=== PATIENT | female | born 1940 | race Caucasian/White ===

== ENCOUNTER 2017-01-18 14:16 | Emergency (ER) | payer MEDICARE, OTHER ==
[2017-01-18 15:26] LABS: Hematocrit 34 % (35-47); Hemoglobin 11.5 g/dl (12.0-16.0); Mean Corpuscular HGB Conc 34 g/dl (31-36); Mean Corpuscular Hemoglobin 31 pg (27-31); Mean Corpuscular Volume 92 fL (80-97); Mean Platelet Volume 9 um3 (7.4-10.4); Red Blood Count 3.66 10^6/ul (4.0-5.4); Red Cell Distribution Width 12 % (10.5-15); White Blood Count 8.2 10^3/ul (3.5-10.8)
[2017-01-18 15:35] VITALS: BP 71/53
[2017-01-18 15:43] LABS: Troponin I 0.01 ng/mL (<0.04)
[2017-01-18 15:53] LABS: Albumin 4.1 g/dL (3.2-5.2); BUN/Creatinine Ratio 20.6 (8-20); C Reactive Protein 2.35 mg/L (< 5.00); Calcium 9.5 mg/dL (8.6-10.3); EGFR African American 38.8 (>60); EGFR Non-African American 30.2 (>60); Globulin 2.9 g/dL (2-4); Potassium 3.6 mmol/L (3.5-5.0); Total Bilirubin 0.5 mg/dL (0.2-1.0)
--- NOTE | 2017-01-18 16:00 | RAD ---
INDICATION: Abdominal pain. Renal failure COMPARISON: None TECHNIQUE: Noncontrast axial source images were obtained from the hemidiaphragms to the symphysis pubis. This examination was ordered using a renal stone protocol which is performed without oral or intravenous contrast and therefore has inherent limitations when used to evaluate other intra-abdominal or intrapelvic pathology. Consider conventional contrast enhanced imaging if clinically indicated Lung bases: The lung bases are clear. Liver: The liver is normal in size. Noncontrast imaging shows no evidence of a hepatic mass or ductal dilatation. Gallbladder: There are no calcified gallstones. There is no evidence of wall thickening or pericholecystic fluid. The gallbladder is distended. Spleen: The spleen is normal in size. The noncontrast CT appearance is normal. Pancreas: Noncontrast imaging shows no pancreatic mass or ductal dilitation. Adrenal glands: No masses are identified. Kidneys/Bladder: There is no evidence of nephrolithiasis or CT evidence of hydronephrosis. Noncontrast imaging shows no evidence of a renal mass. The bladder is unremarkable.. Adenopathy: There is no evidence of intraperitoneal or retroperitoneal adenopathy. Evaluation is limited without oral contrast. Fluid collections: There are no free or localized fluid collections. Vessels: There are atherosclerotic changes of the aorta and iliac vessels. There is no focal aneurysm. The IVC appears normal Pelvic organs: Not well evaluated due to beam hardening artifact from right hip arthroplasty GI tract: Evaluation of the bowel is limited without oral contrast. The stomach, small bowel, and lower GI tract appear grossly normal. There are no obstructive findings. Soft tissues: No soft tissue abnormalities of the extraperitoneal abdomen or pelvis are identified. Osseous structures: There are no acute osseous findings. There is advanced spondylitic change lumbar spine. There is an S-type scoliotic deformity. There is right hip arthroplasty. IMPRESSION: WITHIN THE LIMITS OF NONCONTRAST IMAGING THERE ARE NO ACUTE CT FINDINGS. THERE IS NO MASS OR INFLAMMATORY CHANGE. THE GALLBLADDER DOES APPEAR MILDLY DISTENDED.
[2017-01-18 16:15] LABS: Urine Bilirubin Negative (Negative); Urine Glucose Negative (Negative); Urine Nitrite Negative (Negative)
--- NOTE | 2017-01-31 07:13 | ED ---
Yuval Giron Michael, scribed for Benjamin Mcginnis MD on 01/18/17 at 1443 . Abdominal Pain/Female - HPI Summary HPI Summary: 76 y/o female was BIBA to the ED presenting with abd pain that started today during her dialysis appointment, and after removing her pants in the ED her abd pain was alleviated per nurse. HPI is limited due to dementia-level 5 caveat - History of Current Complaint Chief Complaint: EDAbdPain Stated Complaint: ABDOMINAL PAIN Time Seen by Provider: 01/18/17 14:42 Hx Obtained From: Medical Records Hx From Patient Unobtainable Due To: Dementia Onset/Duration: Sudden Onset, Resolved Timing: Constant Severity Initially: Mild Severity Currently: None Associated Signs and Symptoms: Positive: Negative Allergies/Adverse Reactions: Allergies Allergy/AdvReac Type Severity Reaction Status Date / Time No Known Allergies Allergy Verified 11/23/14 18:23 PMH/Surg Hx/FS Hx/Imm Hx Endocrine/Hematology History: Reports: Hx Thyroid Disease Cardiovascular History: Reports: Hx Hypertension Denies: Hx Pacemaker/ICD Respiratory History: Reports: Hx Asthma, Hx Seasonal Allergies History: Reports: Hx Chronic Renal Failure, Hx Dialysis Sensory History: Reports: Hx Contacts or Glasses - "light bothers her eyes", Hx Vision Problem, Other Sensory Impairments Denies: Hx Hearing Aid Opthamlomology History: Reports: Hx Contacts or Glasses - "light bothers her eyes", Hx Vision Problem, Other Sensory Impairments Neurological History: Reports: Hx Dementia Psychiatric History: Denies: Hx Panic Disorder - Surgical History Surgery Procedure, Year, and Place: right hip fx, arthroscopic surgery to left shoulder and left knee. fistula - Immunization History Date of Tetanus Vaccine: unk Date of Influenza Vaccine: unk Infectious Disease History: Reports: Hx Hepatitis Denies: Hx Clostridium Difficile, Hx Human Immunodeficiency Virus (HIV), Hx of Known/Suspected MRSA, Hx Shingles, Hx Tuberculosis, Hx Known/Suspected VRE, Hx Known/Suspected VRSA, History Other Infectious Disease, Traveled Outside the [place] in Last 30 Days - Family History Known Family History: Positive: Unknown - unobtainable due to dementia - Social History Occupation: Retired Lives: Alone Alcohol Use: None Substance Use Type: Reports: None Smoking Status (MU): Never Smoked Tobacco Review of Systems - ROS Summary Review of Systems Summary: Limited due to level 5 caveat-dementia Negative: Fever Positive: Abdominal Pain All Other Systems Reviewed And Are Negative: No Physical Exam Vital Signs On Initial Exam: Initial Vitals Temp Pulse Resp BP Pulse Ox 98.2 F 68 14 100/33 99 01/18/17 14:30 01/18/17 14:30 01/18/17 14:30 01/18/17 14:30 01/18/17 14:30 Diagnostics - Vital Signs Vital Signs Temp Pulse Resp BP Pulse Ox 01/18/17 14:30 98.2 F 68 14 100/33 99 - Laboratory Lab Results: Lab Results 01/18/17 01/18/17 01/18/17 Range/Units 15:14 15:14 15:14 WBC 8.2 (3.5-10.8) 10^3/ul RBC 3.66 L (4.0-5.4) 10^6/ul Hgb 11.5 L (12.0-16.0) g/dl Hct 34 L (35-47) % MCV 92 (80-97) fL MCH 31 (27-31) pg MCHC 34 (31-36) g/dl RDW 12 (10.5-15) % Plt Count 210 (150-450) 10^3/ul MPV 9 (7.4-10.4) um3 Neut % (Auto) 65.0 (38-83) % Lymph % (Auto) 26.4 (25-47) % Bibb % (Auto) 5.1 (1-9) % Eos % (Auto) 2.8 (0-6) % Baso % (Auto) 0.7 (0-2) % Absolute Neuts (auto) 5.3 (1.5-7.7) 10^3/ul Absolute Lymphs (auto) 2.2 (1.0-4.8) 10^3/ul Absolute Monos (auto) 0.4 (0-0.8) 10^3/ul Absolute Eos (auto) 0.2 (0-0.6) 10^3/ul Absolute Basos (auto) 0.1 (0-0.2) 10^3/ul Absolute Nucleated RBC 0 10^3/ul Nucleated RBC % 0 INR (Anticoag Therapy) (0.89-1.11) Sodium 136 (133-145) mmol/L Potassium 3.6 (3.5-5.0) mmol/L Chloride 98 L (101-111) mmol/L Carbon Dioxide 30 (22-32) mmol/L Anion Gap 8 (2-11) mmol/L BUN 34 H (6-24) mg/dL Creatinine 1.65 H (0.51-0.95) mg/dL Est GFR ( Amer) 38.8 (>60) Est GFR (Non-Af Amer) 30.2 (>60) BUN/Creatinine Ratio 20.6 H (8-20) Glucose 125 H (70-100) mg/dL Lactic Acid 0.7 (0.5-2.0) mmol/L Calcium 9.5 (8.6-10.3) mg/dL Total Bilirubin 0.50 (0.2-1.0) mg/dL AST 16 (13-39) U/L ALT 14 (7-52) U/L Alkaline Phosphatase 67 (34-104) U/L Troponin I 0.01 (<0.04) ng/mL C-Reactive Protein 2.35 (< 5.00) mg/L Total Protein 7.0 (6.4-8.9) g/dL Albumin 4.1 (3.2-5.2) g/dL Globulin 2.9 (2-4) g/dL Albumin/Globulin Ratio 1.4 (1-3) Lipase 47 (11.0-82.0) U/L Urine Color Urine Appearance Urine pH (5-9) Ur Specific [place] (1.010-1.030) Urine Protein (Negative) Urine Ketones (Negative) Urine Blood (Negative) Urine Nitrate (Negative) Urine Bilirubin (Negative) Urine Urobilinogen (Negative) Ur Leukocyte Esterase (Negative) Urine Glucose (Negative) Urine Ascorbic Acid (Negative) 01/18/17 01/18/17 Range/Units 15:14 16:03 WBC (3.5-10.8) 10^3/ul RBC (4.0-5.4) 10^6/ul Hgb (12.0-16.0) g/dl Hct (35-47) % MCV (80-97) fL MCH (27-31) pg MCHC (31-36) g/dl RDW (10.5-15) % Plt Count (150-450) 10^3/ul MPV (7.4-10.4) um3 Neut % (Auto) (38-83) % Lymph % (Auto) (25-47) % Bibb % (Auto) (1-9) % Eos % (Auto) (0-6) % Baso % (Auto) (0-2) % Absolute Neuts (auto) (1.5-7.7) 10^3/ul Absolute Lymphs (auto) (1.0-4.8) 10^3/ul Absolute Monos (auto) (0-0.8) 10^3/ul Absolute Eos (auto) (0-0.6) 10^3/ul Absolute Basos (auto) (0-0.2) 10^3/ul Absolute Nucleated RBC 10^3/ul Nucleated RBC % INR (Anticoag Therapy) 0.94 (0.89-1.11) Sodium (133-145) mmol/L Potassium (3.5-5.0) mmol/L Chloride (101-111) mmol/L Carbon Dioxide (22-32) mmol/L Anion Gap (2-11) mmol/L BUN (6-24) mg/dL Creatinine (0.51-0.95) mg/dL Est GFR ( Amer) (>60) Est GFR (Non-Af Amer) (>60) BUN/Creatinine Ratio (8-20) Glucose (70-100) mg/dL Lactic Acid (0.5-2.0) mmol/L Calcium (8.6-10.3) mg/dL Total Bilirubin (0.2-1.0) mg/dL AST (13-39) U/L ALT (7-52) U/L Alkaline Phosphatase (34-104) U/L Troponin I (<0.04) ng/mL C-Reactive Protein (< 5.00) mg/L Total Protein (6.4-8.9) g/dL Albumin (3.2-5.2) g/dL Globulin (2-4) g/dL Albumin/Globulin Ratio (1-3) Lipase (11.0-82.0) U/L Urine Color Yellow Urine Appearance Clear Urine pH 5.0 (5-9) Ur Specific [place] 1.017 (1.010-1.030) Urine Protein Negative (Negative) Urine Ketones Negative (Negative) Urine Blood Negative (Negative) Urine Nitrate Negative (Negative) Urine Bilirubin Negative (Negative) Urine Urobilinogen Negative (Negative) Ur Leukocyte Esterase Negative (Negative) Urine Glucose Negative (Negative) Urine Ascorbic Acid * H (Negative) Result Diagrams: 01/18/17 15:14 01/18/17 15:14 Lab Statement: Any lab studies that have been ordered have been reviewed, and results considered in the medical decision making process. - CT ABD/PEL CT CT Interpretation: Positive (See Comments) - WITHIN THE LIMITS OF NONCONTRAST IMAGING THERE ARE NO ACUTE CT FINDINGS. THERE IS NO MASS OR INFLAMMATORY CHANGE. THE GALLBLADDER DOES APPEAR MILDLY DISTENDED. CT Interpretation Completed By: Radiologist - EKG EK EKG Rhythm: Sinus Rhythm - 64 bpm EKG Interpretation: no STEMI EKG Comparison: No Significant Change Abdominal Pain Fem Course/Dx - Course Course Of Treatment: 76 yr old female with no pain, negative CT abd pelvis. DC home. - Diagnoses Provider Diagnoses: Abdominal pain Discharge - Discharge Plan Condition: Good Disposition: HOME Patient Education Materials: Acute Abdominal Pain (ED) Referrals: Beatriz Marks MD [Primary Care Provider] - The documentation as recorded by the Yuval contreras Michael accurately reflects the service I personally performed and the decisions made by Ras menendez Walter, MD.
== END 2017-01-18 16:51 | disposition home or self-care (01) ==
LOC: ED 14:16
DX: R10.9 Unspecified abdominal pain (principal)
CPT/HCPCS: 36415; 74176; 80053; 81003; 83605; 83690; 84484; 85025; 85610; 86140; 93005; 99282

== ENCOUNTER 2017-04-17 22:58 | Emergency (ER) | payer MEDICARE, OTHER ==
[2017-04-17 23:03] VITALS: BP 125/55
--- NOTE | 2017-04-18 01:02 | ED ---
Adult Trauma - HPI Summary HPI Summary: 76F presents with right shoulder pain. She has laceration to above right eyebrow. Her right shoulder is her only compliant. She states she fell. [place] was [place] on her face and was an unwitnessed fall. unknown LOC. no blood thinners according to records from retirement. She has PMH of dementia. Level 5 cavet - History of Current Complaint Chief Complaint: EDExtremityUpper Stated Complaint: FALL Time Seen by Provider: 04/17/17 23:10 Pain Intensity: 7 - Allergy/Home Medications Allergies/Adverse Reactions: Allergies Allergy/AdvReac Type Severity Reaction Status Date / Time No Known Allergies Allergy Verified 11/23/14 18:23 PMH/Surg Hx/FS Hx/Imm Hx Endocrine/Hematology History: Reports: Hx Thyroid Disease Cardiovascular History: Reports: Hx Hypertension Denies: Hx Pacemaker/ICD Respiratory History: Reports: Hx Asthma, Hx Seasonal Allergies History: Reports: Hx Chronic Renal Failure, Hx Dialysis Sensory History: Reports: Hx Contacts or Glasses - "light bothers her eyes", Hx Vision Problem, Other Sensory Impairments Denies: Hx Hearing Aid Opthamlomology History: Reports: Hx Contacts or Glasses - "light bothers her eyes", Hx Vision Problem, Other Sensory Impairments Neurological History: Reports: Hx Dementia Psychiatric History: Denies: Hx Panic Disorder - Surgical History Surgery Procedure, Year, and Place: right hip fx, arthroscopic surgery to left shoulder and left knee. fistula - Immunization History Date of Tetanus Vaccine: unk Date of Influenza Vaccine: unk Infectious Disease History: Unable to Obtain/Confirm Infectious Disease History: Reports: Hx Hepatitis Denies: Hx Clostridium Difficile, Hx Human Immunodeficiency Virus (HIV), Hx of Known/Suspected MRSA, Hx Shingles, Hx Tuberculosis, Hx Known/Suspected VRE, Hx Known/Suspected VRSA, History Other Infectious Disease, Traveled Outside the [place] in Last 30 Days - Family History Known Family History: Positive: Unknown - Social History Alcohol Use: None Substance Use Type: Reports: None Smoking Status (MU): Never Smoked Tobacco Review of Systems Negative: Fever Negative: Chest Pain Negative: Shortness Of Breath Negative: Abdominal Pain Positive: Myalgia - right shoulder All Other Systems Reviewed And Are Negative: Yes Physical Exam Triage Information Reviewed: Yes Vital Signs On Initial Exam: Initial Vitals Temp Pulse Resp BP Pulse Ox 97 F 73 18 125/55 100 04/17/17 23:00 04/17/17 23:00 04/17/17 23:00 04/17/17 23:00 04/17/17 23:00 Vital Signs Reviewed: Yes Completion Of Physical Exam Limited Due To: Dementia Appearance: Positive: Well-Appearing Skin: Positive: Warm, Dry, Other - 1cm superificial laceration above right eyebrow Head/Face: Positive: Normal Head/Face Inspection, Other - no step raccoon eyes, coles sign, racoon eyes Eyes: Positive: Normal, EOMI, MERRY, Conjunctiva Clear ENT: Positive: Normal ENT inspection, Pharynx normal, TMs normal Respiratory/Lung Sounds: Positive: Clear to Auscultation, Breath Sounds Present , Other - nontender chest Cardiovascular: Positive: Normal, RRR Abdomen Description: Positive: Nontender, Soft Bowel Sounds: Positive: Present Musculoskeletal: Positive: Strength/ROM Intact - left arm, right wrist and hand , Other - nontender hip and legs, tenderness to right shoulder, good pulses, capillary refill<2 secs Neurological: Positive: CN Intact II-III - [place] Coma Scale Best Eye Response: 4 - Spontaneous Best Motor Response: 6 - Obeys Commands Best Verbal Response: 5 - Oriented Procedures - Laceration/Wound Repair 1 Location: face Description: Linear Length, Depth and Shape: 1cm superficial Irrigated w/ Saline (ccs): 100 Closure: Skin Adhesive Diagnostics - Vital Signs Vital Signs Temp Pulse Resp BP Pulse Ox 04/17/17 23:00 97 F 73 18 125/55 100 - Laboratory Lab Statement: Any lab studies that have been ordered have been reviewed, and results considered in the medical decision making process. - Radiology shoulder Xray Interpretation: Positive (See Comments) - humeral neck fracture Radiology Interpretation Completed By: ED Physician - CT head CT Interpretation: No Acute Changes - involutional changes, no hemorrhage, mass , osseous structures intact CT Interpretation Completed By: Radiologist maxillary facial CT Interpretation: Positive (See Comments) - negtaive for orbite or facial fracture. fracture of right humeral head/neck junction CT Interpretation Completed By: Radiologist neck CT Interpretation: No Acute Changes - negtaie for cervical fracture CT Interpretation Completed By: Radiologist Adult Trauma Course/Dx - Course Course Of Treatment: 76F presents with right shoulder pain. She has laceration to above right eyebrow. Her right shoulder is her only compliant. She states she fell. She was [place] on [place] face and was an unwitnessed fall. unknown LOC. no blood thinners according to records from retirement. She has PMH of dementia. Level 5 cavet. on exam tender to right shoulder, neurovascular intact. CN2-[address] brain normal. xray shows proximal humeral fracture. placed in sling and told to follow up with ortho. - Diagnoses Differential Diagnosis/HQI/PQRI: Positive: Contusion(s), Fracture, Sprain Provider Diagnoses: Proximal humeral fracture Discharge - Discharge Plan Condition: Good Disposition: HOME Patient Education Materials: Proximal Humerus Fracture (ED) Referrals: Beatriz Marks MD [Primary Care Provider] - Zelalem Harrison MD [Medical Doctor] - Additional Instructions: Take tyenlol for pain every 6 hours as needed Keep sling on area Follow up with ortho within 5 days Return to ED if develop any new or worsening symptoms
--- NOTE | 2017-04-18 07:35 | RAD ---
INDICATION: Right shoulder injury COMPARISON: None TECHNIQUE: Routine frontal and Y views were obtained. FINDINGS: There is a comminuted and displaced fracture of the surgical neck of the humerus. The distal fracture fragment is displaced one half bone width medially. 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 No rib fracture or pneumothorax is seen. IMPRESSION: FRACTURE SURGICAL NECK HUMERUS
--- NOTE | 2017-04-18 07:38 | RAD ---
INDICATION: Fall. Intracranial injury. COMPARISON: CT brain December 27, 2014 TECHNIQUE: Noncontrast axial source images were acquired from the skull base to the vertex. FINDINGS: Ventricles/sulci: There is advanced cortical atrophy with compensatory dilatation of the CSF spaces. Brain parenchyma: There is periventricular and subcortical white matter change compatible with chronic ischemia. Intracranial hemorrhage:None. Extra-axial spaces: There are no abnormal extra axial fluid collections or evidence of extra-axial mass. Calvarium: There is no calvarial fracture or other calvarial abnormality. Scalp: There is no evidence of scalp or extracalvarial soft tissue abnormality. Paranasal sinuses/mastoid: There is complete opacification of the right maxillary antrum which appears hypoplastic. The appearance unchanged. The remaining paranasal sinuses and mastoid air cells are clear. Other: None. IMPRESSION: CORTICAL ATROPHY WITH CHRONIC MICROVASCULAR ISCHEMIC CHANGES. NO ACUTE FINDINGS.
--- NOTE | 2017-04-18 08:02 | RAD ---
INDICATION: Fall. Facial injury. COMPARISON: CT brain April 18, 2017; CT brain December 27, 2014 TECHNIQUE: Axial source images were acquired from the vertex of the mandible through the orbits. Coronal and sagittal reconstructed images were acquired. FINDINGS: Bones: There is no acute facial bone fracture. Orbits: The globes and intraconal structures appear intact. The optic nerves are symmetric. Extraocular muscles appear normal. There is no intraconal inflammatory change or retrobulbar mass.. Paranasal sinuses: There is chronic complete opacification the right maxillary antrum. The paranasal sinuses are otherwise clear. Brain: There are no acute abnormalities of the visualized brain parenchyma. Soft tissues: Normal Other: None The visualized soft tissue elements about the neck appear normal. IMPRESSION: NO ACUTE FACIAL BONE FRACTURE.
--- NOTE | 2017-04-18 08:03 | RAD ---
Indication: Fall, neck injury. CT of the cervical spine was obtained in the axial plane. Sagittal and coronal reconstructed images were obtained. The skull base demonstrates no evidence of fracture. Mastoid air cells are well aerated. The C1 ring is intact. Degenerative changes of the atlantoaxial joint is noted. There is no evidence of fracture of the visualized cervical spine. There is disc space narrowing at C3-C4, C4-C5, C5-C6 and C6-C7 as well as C7-T1. No central or foraminal stenosis is identified. The spinous processes of C7 is not demonstrated and is not within the [id number]. IMPRESSION: Degenerative disc disease at multiple levels without evidence of fracture. C7 spinous process is not visualized.
== END 2017-04-18 03:00 | disposition home or self-care (01) ==
LOC: ED 22:58
DX: S42.201A Unspecified fracture of upper end of right humerus, initial encounter for closed fracture (principal); M25.511 Pain in right shoulder; S01.111A Laceration without foreign body of right eyelid and periocular area, initial encounter; W19.XXXA Unspecified fall, initial encounter; Y93.9 Activity, unspecified; Y92.9 Unspecified place or not applicable
CPT/HCPCS: 70450; 70486; 72125; 99283